=== PATIENT | female | born 1945 | race Caucasian/White ===

== ENCOUNTER 2017-08-14 08:57 | Emergency (ER) | payer MEDICARE ==
[2017-08-14] MEDS ORDERED: DEXAMETHASONE SOD PHOSPHATE 10MG/ML 1ML VIAL ONE (09:26)
[2017-08-14] MEDS ORDERED: IPRATROPIUM/ALBUTEROL SULFATE 3 ML SOLUTION IH ONE (09:32)
== END 2017-08-14 13:11 | disposition home or self-care (01) ==
LOC: EDH 08:57
DX: J20.9 Acute bronchitis, unspecified (principal); R03.0 Elevated blood-pressure reading, without diagnosis of hypertension; Z88.0 Allergy status to penicillin
CPT/HCPCS: 94640; 96372; 99283; J1100